=== PATIENT | female | born 1980 ===

== ENCOUNTER 2020-07-11 11:12 | Emergency (ER) | payer SELFPAY ==
[~2020-07-11] VITALS: Ht 167.6 cm; Wt 100.0 kg
[2020-07-11 11:19] VITALS: TEMP 98
[2020-07-11 12:52] VITALS: BP 142/70; PULSE 78
== END 2020-07-11 12:52 | disposition home or self-care (01) ==
LOC: COL.ER 11:12
DX: S81.011A Laceration without foreign body, right knee, initial encounter (principal); Z23 Encounter for immunization; W01.0XXA Fall on same level from slipping, tripping and stumbling without subsequent striking against object, initial encounter